=== PATIENT | female | born 1990 | race Caucasian/White ===

== ENCOUNTER 2018-08-02 00:25 | Inpatient (IN) | payer OTHER ==
[2018-08-02] MEDS ORDERED: LIDOCAINE 1% MPF 30 ML VIAL ONE (00:32)
[2018-08-02] MEDS ORDERED: OXYTOCIN 10 UNIT/ML ML IV ONE (00:32)
[2018-08-02] MEDS ORDERED: ONDANSETRON 4 MG (ODT) TAB PO PRN (00:35)
[2018-08-02] MEDS ORDERED: IBUPROFEN 200 MG TAB PO PRN (00:35)
[2018-08-02] MEDS ORDERED: METHYLERGONOVINE 0.2 MG TAB PO PRN (00:35)
[2018-08-02] MEDS ORDERED: ACETAMINOPHEN 500 MG TAB PO PRN (00:35)
[2018-08-02] MEDS ORDERED: DOCUSATE NA/SENNA CONC 1 TAB PO PRN (00:35)
[2018-08-02] MEDS ORDERED: Oxycodone HCl/Acetaminophen 1 TAB TAB PO PRN (00:35)
[2018-08-02] MEDS ORDERED: BISACODYL 10 MG RECTAL SUPP RECT PRN (00:35)
--- NOTE | 2018-08-02 00:37 | P.OP ---
Date of Service: 08/02/18 Findings and Operative Technique The patient delivered a viable male infant in cephalic presentation on August 02, 2018 at 12:15 a.m.. was delivered precipitously. Patient presented to Labor and delivery at fully dilated and immediately delivered prior to my arrival. Male infant was delivered. Apgars were 9 and 9. Weight was found to be 9 lb 12 oz. Placenta was then spontaneously delivered at 12:24 a.m.. Placenta was examined and noted to be intact. Perineum was then inspected and was noted to have a second-degree laceration in the midline. Lidocaine was used to anesthetize the region. The laceration was repaired with a 2 0 Vicryl in usual fashion. Patient tolerated repair well. Estimated blood loss was 150 cc. 1st stage of labor was 1 hr. 2nd stage was 9 min. Both mom and baby are bonding well. Mom plans to breast feed. Both are afebrile. Routine care will be provided.
--- NOTE | 2018-08-02 00:37 | P.OBGYNHP ---
Certification for Inpatient Patient admitted to: Inpatient With expected LOS: <2 Midnights Patient will require the following post-hospital care: None Practitioner: I am a practitioner with admitting privileges, knowledge of patient current condition, hospital course, and medical plan of care. Services: Services provided to patient in accordance with Admission requirements found in Title 42 Section 412.3 of the Code of Federal Regulations Patient History Date of Service: 08/12/18 Reason for admission: LABOR History of Present Illness: Patient is a 27-year-old 013 who presents at 38 weeks and 5 days gestation who presents with spontaneous rupture of membranes that occurred at 11 :15 p.m.. Patient presented to Labor and delivery at 12:10 a.m.. Medially upon arrival to Labor and delivery she felt intense pressure was unable to sit and began feeling like she is going to deliver the baby. On examination by the nurse she was noted to be fully dilated approximately 5 min later the patient delivered quickly. I was notified regarding patient's exam once the vaginal exam was performed I was on my way however patient delivered very quickly. Patient has obtained care with me beginning at 11 weeks gestation. Patient has been compliant with all visits. Patient was scheduled for induction of labor at 39 weeks. Patient was being monitored for suspected macrosomia. See record for further details. Allergies No Known Allergies Allergy (Unverified 08/01/18 13:36) Home Medications: [id number]/Iron/l-Mefol/Omega3/Dha [ Plus-Dha Combo Pack] 1 each PO DAILY - Past Medical/Surgical History Past Medical History: Patient denies medical history -: Childbirth -: D and C - Family History Family History: Reviewed- Non-Contributory - Social History Smoking Status: Never smoker Alcohol use: No CD- Drugs: No Caffeine use: No Place of Residence: Home Review of Systems 10-point ROS is otherwise unremarkable Physical Examination - Vital Signs Temperature: 97.2 F Blood Pressure: 123/73 Pulse: 76 Respirations: 18 - General General: Alert, Oriented x3, Moderate distress HEENT: Atraumatic Neck: Supple Respiratory: Normal air movement Cardiovascular: No edema Breasts: Normal configuration, Normal contours Gastrointestinal: Other (Gravid) Integumentary: No rashes, No breakdown Neurological: Normal speech - Female Pelvic Vagina: Normal, [place], Moist Cervix: Dilation (Fully dilated), Effacement (100% effaced), station (-2) Uterus: Gravid Adnexa: Unable to evaluate - Obstetrics Amniotic membrane: SROM Assessment and Plan - Plan Patient is a 27-year-old 5 para 3013 who presents at 38 weeks and 5 days gestation in active labor. GBS negative. Patient has already delivered. Patient to receive routine care. Perineum will be inspected for any lacerations. Discharge Plan: Home Plan to discharge in: 24 Hours - Advance Directives Does patient have a Living Will: No Does patient have a Durable POA for Healthcare: No
[2018-08-02] MEDS ORDERED: KETOROLAC 30 MG/ML INJ ONE (00:41)
[2018-08-02] MEDS ORDERED: KETOROLAC 30 MG/ML INJ IM ONE (01:29)
[2018-08-02 01:45] VITALS: BMI 38.1
[2018-08-02 03:12] LABS: RPR Titer ND
[2018-08-02 03:23] LABS: Absolute Monocytes 0.5 K/uL (0.1-1.3); Absolute Neutrophil 10.8 K/uL (1.8-8.0); Basophils % 1.4 % (0-1.3); Eosinophils % 1.2 % (0-4.4); Hematocrit 33.4 % (36.0-45.0); Lymphocytes % 8.1 % (15.3-44.8); MPV 7.7 fL (7.6-11.3); Monocytes % 3.7 % (3.3-12.3); RBC Red Blood Cell Count 3.91 M/uL (3.86-4.86)
[2018-08-02 05:17] LABS: Blood Morphology Comment NOT SEEN (NOT SEEN); Platelet Estimate ADEQ
[2018-08-02] MEDS ORDERED: Ringers Lactate 1,000 ML IV ONE (07:23)
[2018-08-02 21:22] LABS: RPR (Rapid Plasma Reagin) NON-REACT (NON-REACT)
[2018-08-03 04:44] LABS: Absolute Lymphocytes (CBC) 2.2 K/uL (0.7-4.9); Absolute Monocytes 0.6 K/uL (0.1-1.3); Absolute Neutrophil 7.7 K/uL (1.8-8.0); Basophils % 0.6 % (0-1.3); Hematocrit 31.1 % (36.0-45.0); Lymphocytes % 20.5 % (15.3-44.8); MPV 7.4 fL (7.6-11.3); Monocytes % 5.2 % (3.3-12.3); RBC Red Blood Cell Count 3.63 M/uL (3.86-4.86)
[2018-08-03] MEDS ORDERED: MEASLES,MUMPS,RUBELLA VAC 0.5ML SQVAC ONE (07:58)
[2018-08-06 03:35] LABS: HBsAG Nonreactive (Nonreactive)
[2018-08-12 11:54] VITALS: BP 123/73; TEMP 97.2
== END 2018-08-03 09:45 | disposition home or self-care (01) | DRG 807 ==
LOC: 2ND-WC 00:25
PROVIDERS: ADMIT Student in an Organized Health Care Education/Training Program; ATTEND Student in an Organized Health Care Education/Training Program
PROC: 10E0XZZ Delivery of Products of Conception, External Approach (ICD-10-PCS; principal; 2018-08-02)
PROC: 0KQM0ZZ Repair Perineum Muscle, Open Approach (ICD-10-PCS; 2018-08-02)
DX: O70.1 Second degree perineal laceration during delivery (principal); Z37.0 Single live birth; Z3A.38 38 weeks gestation of pregnancy; Z23 Encounter for immunization
CPT/HCPCS: 36415; 85025; 86592; 86901; 87340; 90707; 99218; J2590